=== PATIENT | female | born 1960 | race Caucasian/White ===

== ENCOUNTER 2017-06-07 18:20 | Inpatient (IN) | payer OTHER ==
[~2017-06-07] VITALS: Ht 160 cm; Wt 111.1 kg
[~2017-06-07 18:20] MED LIST: ALPR0.5T PO; BISA-13; BUPR100T71; BUPRTAB3 PO; CALC-30; FENT50DI11 TOP; IRON15CH; IRONTAB35 PO; NORCO PO; PRO125RS; QUET400T PO; QUET400T3; SIMV10TA73 PO; SIMV5TAB38
[2017-06-07 19:12] LABS: Hematocrit 41.4 % (36.0-46.0); Mean Corpuscular Hemoglobin 32.6 pg (28.0-32.0); Mean Corpuscular Hgb Conc. 33.8 g/dL (32.0-36.0); Mean Corpuscular Volume 96.5 fL (80.0-100.0); Mean Platelet Volume 6.9 fL (6.9-10.8); Platelet Count (auto) 178 10^3/uL (140-450); Red Cell Distribution Width 12.8 % (11.8-14.3)
[2017-06-07 19:26] LABS: INR 1.05 (0.9-1.15); Partial Thromboplastin Time 28.4 sec (22.64-33.71); Prothrombin Time 11.5 sec (9.37-12.3)
[2017-06-07 19:27] LABS: Promyelocytes % 0; Reactive Lymphocytes 0
[2017-06-07 19:36] LABS: Albumin 3.3 g/dL (3.4-5.0); Alkaline Phosphatase 82 U/L (45-117); Anion Gap 11 (5-15); Aspartate Aminotransferase 17 U/L (15-37); BUN/Creatinine Ratio 21.6; Bilirubin, Total 1.2 mg/dL (0.2-1.0); Blood Urea Nitrogen 27 mg/dL (7-18); Calcium 8.7 mg/dL (8.5-10.1); Carbon Dioxide 24 mmol/L (21-32); Chloride 102 mmol/L (98-107); GFR African American 57 mL/min; GFR Non-African American 47 mL/min; Glucose 119 mg/dL (74-106); Sodium 137 mmol/L (136-145); Total Protein 6.6 g/dL (6.4-8.2)
[2017-06-07 19:42] LABS: Metamyelocytes % 4; Myelocytes % 1; Platelet Estimate Adequate
[2017-06-07 19:43] LABS: Tear Drop Cells FEW
[2017-06-07 19:44] LABS: Stomatocytes Few
[2017-06-07] MEDS ORDERED: VANCOMYCIN 1GM/250ML 250 ML IV ONE (23:15)
[2017-06-07] MEDS ORDERED: PIPERACILLIN-TAZO 4.5GM 50 ML IV ONE (23:15)
[2017-06-07] MEDS ORDERED: SODIUM CHLORIDE 0.9% 1,000 ML IV ONE (23:15)
[2017-06-08] MEDS ORDERED: MORP-110 PO (00:03)
[2017-06-08] MEDS ORDERED: OMEP20TA PO (00:04)
[2017-06-08] MEDS ORDERED: CYAN1TAB14 PO (00:05)
[2017-06-08] MEDS ORDERED: RIS1T PO (00:05)
[2017-06-08] MEDS ORDERED: LAMO200T34 PO (00:06)
[2017-06-08] MEDS ORDERED: ATOR10TA PO (00:06)
[2017-06-08] MEDS ORDERED: ACETAMINOPHEN 325 MG TAB PO PRN (07:00)
[2017-06-08] MEDS ORDERED: buPROPion HCL 100 MG TAB PO SCH (07:00)
[2017-06-08] MEDS ORDERED: ONDANSETRON HCL 4 MG/2 ML VIAL IV PRN (07:00)
[2017-06-08] MEDS: cefTRIAXone 1GM/10ml IVPUSH 10 ML IV SCH (09:19)
[2017-06-08] MEDS ORDERED: FAMOTIDINE 20 MG TAB PO SCH (10:00)
[2017-06-08] MEDS: MORPHINE SULF 30 mg ER tab PO SCH ×2 (10:00→22:16)
[2017-06-08] MEDS ORDERED: risperiDONE 1 MG TAB PO SCH (10:00)
[2017-06-08] MEDS: lamoTRIgine 100 MG TAB PO SCH (10:13)
[2017-06-08] MEDS: AZITHROMYCIN 500MG/ 250ML 250 ML IV SCH (10:13)
[2017-06-08] MEDS: ENOXAPARIN SOD 40 MG/0.4 ML SYRINGE SC SCH (10:13)
[2017-06-08 10:37] LABS: Lactic Acid w/Reflex 3.2 mmol/L (0.4-2.0)
[2017-06-08 10:42] LABS: REFLEX LACTIC ACID YES OR NO YES
[2017-06-08] MEDS: HYDROcodone-ACET 5/325MG TAB PO PRN ×2 (10:51→16:50)
[2017-06-08] MEDS: risperiDONE 1 MG TAB PO SCH (15:27)
[2017-06-08] MEDS: buPROPion HCL 100 MG TAB PO SCH (15:27)
[2017-06-08] MEDS: ATORVASTATIN 20 MG TAB PO SCH (15:27)
[2017-06-08] MEDS: ALBUTEROL SULF 2.5 MG/0.5ML(0.5%) NEB SOLN NEB SCH (19:10)
[2017-06-08 21:51] VITALS: BP 93/63
[2017-06-08] MEDS ORDERED: SIMVASTATIN 5 MG PO SCH (22:00)
[2017-06-08] MEDS: QUEtiapine FUMARATE 100 MG TAB PO SCH (22:00)
[2017-06-08 22:12] VITALS: BP 98/49
[2017-06-08] MEDS: predniSONE 20 MG TAB PO SCH (22:16)
[2017-06-09] MEDS: ALBUTEROL SULF 2.5 MG/0.5ML(0.5%) NEB SOLN NEB SCH ×4 (00:15→18:08)
[2017-06-09] MEDS: HYDROcodone-ACET 5/325MG TAB PO PRN ×3 (05:05→19:04)
[2017-06-09] MEDS: buPROPion HCL 100 MG TAB PO SCH ×2 (05:43→14:40)
[2017-06-09 05:44] LABS: Basophils # (auto) 0 uL; Eosinophils # (auto) 0 uL; Hematocrit 34.2 % (36.0-46.0); Hemoglobin 11.7 g/dL (12.2-16.2); Lymphocytes # (auto) 0.5 uL; Lymphocytes % (auto) 4.9 % (10.0-50.0); Mean Corpuscular Hemoglobin 32.8 pg (28.0-32.0); Mean Corpuscular Hgb Conc. 34.3 g/dL (32.0-36.0); Mean Corpuscular Volume 95.4 fL (80.0-100.0); Mean Platelet Volume 7.4 fL (6.9-10.8); Monocytes # (auto) 0.3 uL; Monocytes % (auto) 2.7 % (0.0-12.0); Neutrophils # (auto) 9.3 uL; Neutrophils % (auto) 92.4 % (37.0-80.0); Nucleated Red Blood Cells % 0.1 %; Platelet Count (auto) 156 10^3/uL (140-450); Red Cell Distribution Width 13.1 % (11.8-14.3); White Blood Cell 10.1 10^3/uL (4.4-10.8)
[2017-06-09] MEDS: predniSONE 20 MG TAB PO SCH ×3 (05:44→22:45)
[2017-06-09 05:55] VITALS: BP 100/59
[2017-06-09 05:56] LABS: Potassium 4.4 mmol/L (3.5-5.1)
[2017-06-09 06:06] LABS: Albumin 2.7 g/dL (3.4-5.0); Bilirubin, Total 0.6 mg/dL (0.2-1.0); Calcium 9.2 mg/dL (8.5-10.1)
[2017-06-09] MEDS ORDERED: IOHEXOL 350 MG/ML 100ML IJ ONE (08:16)
[2017-06-09] MEDS: cefTRIAXone 1GM/10ml IVPUSH 10 ML IV SCH (08:41)
[2017-06-09 09:00] VITALS: BP 118/67
[2017-06-09] MEDS: MORPHINE SULF 30 mg ER tab PO SCH ×2 (10:22→22:42)
[2017-06-09] MEDS: ENOXAPARIN SOD 40 MG/0.4 ML SYRINGE SC SCH (10:22)
[2017-06-09] MEDS: AZITHROMYCIN 500MG/ 250ML 250 ML IV SCH (10:23)
[2017-06-09] MEDS: lamoTRIgine 100 MG TAB PO SCH (10:23)
[2017-06-09 13:00] VITALS: BP 152/83
[2017-06-09] MEDS ORDERED: FUROSEMIDE 20 MG/2 ML VIAL IV ONE (14:00)
[2017-06-09] MEDS: ATORVASTATIN 20 MG TAB PO SCH (14:39)
[2017-06-09] MEDS: risperiDONE 1 MG TAB PO SCH (14:40)
[2017-06-09 17:23] VITALS: BP 130/67
[2017-06-09] MEDS ORDERED: ALPRAZolam 0.5 MG TAB PO PRN (17:45)
[2017-06-09 22:00] VITALS: BP 125/72
[2017-06-09] MEDS: QUEtiapine FUMARATE 100 MG TAB PO SCH (22:00)
[2017-06-10] MEDS: ALBUTEROL SULF 2.5 MG/0.5ML(0.5%) NEB SOLN NEB SCH ×3 (00:24→11:37)
[2017-06-10] MEDS: HYDROcodone-ACET 5/325MG TAB PO PRN ×2 (03:23→13:04)
[2017-06-10 06:00] VITALS: BP_SYST 133
[2017-06-10] MEDS: predniSONE 20 MG TAB PO SCH (06:01)
[2017-06-10] MEDS: buPROPion HCL 100 MG TAB PO SCH (06:01)
[2017-06-10 09:00] VITALS: BP 125/64
[2017-06-10] MEDS: cefTRIAXone 1GM/10ml IVPUSH 10 ML IV SCH (09:03)
[2017-06-10] MEDS: AZITHROMYCIN 500MG/ 250ML 250 ML IV SCH (09:47)
[2017-06-10] MEDS: ENOXAPARIN SOD 40 MG/0.4 ML SYRINGE SC SCH (09:47)
[2017-06-10] MEDS: lamoTRIgine 100 MG TAB PO SCH (09:47)
[2017-06-10] MEDS: MORPHINE SULF 30 mg ER tab PO SCH (09:48)
[2017-06-10 13:00] VITALS: BP 131/79
[2017-06-10] MEDS: CYCLOBENZAPRINE HCL 10 MG TAB PO PRN ×2 (13:05→13:07)
[2017-06-10 14:24] VITALS: BP 131/79
[2017-06-10] MEDS ORDERED: CEPH-37 PO (15:51)
[2017-06-10] MEDS ORDERED: PRE5T PO (15:51)
[2017-06-10] MEDS ORDERED: ALBUAER3 IN (15:51)
[2017-06-11] MEDS ORDERED: ALBUAER3 IN (13:57)
== END 2017-06-10 17:52 | disposition home or self-care (01) | DRG 193 ==
LOC: ER 18:20 → OVERFLOW 18:21 → WEST WING 06-08 20:23
PROVIDERS: ADMIT Nurse Practitioner; ATTEND Hospitalist
DX: J18.1 Lobar pneumonia, unspecified organism (principal); J96.01 Acute respiratory failure with hypoxia; Z68.41 Body mass index [BMI] 40.0-44.9, adult; F31.30 Bipolar disorder, current episode depressed, mild or moderate severity, unspecified; E66.01 Morbid (severe) obesity due to excess calories; F41.9 Anxiety disorder, unspecified; G89.4 Chronic pain syndrome; E78.5 Hyperlipidemia, unspecified; I10 Essential (primary) hypertension; Z98.84 Bariatric surgery status; Z90.49 Acquired absence of other specified parts of digestive tract
CPT/HCPCS: 36415; 71010; 80053; 84484; 85007; 85027; 85610; 85730; 96365; 96366; 96367; 96372; 96375; 99285; J3370; 71275; 83605; 85025; 86141; 87040; 87081; 93005; 94640; J2543